=== PATIENT | female | born 2000 | race African-American/Black ===

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

== ENCOUNTER 2018-02-17 08:36 | Outpatient (CLI) | payer MEDICAID ==
[2018-02-17 09:49] LABS: APPEARANCE,URINE SLIGHTLY-CLOUDY; BILIRUBIN,URINE NEGATIVE (NEGATIVE); COLOR,URINE YELLOW; GLUCOSE, URINE NEGATIVE (NEGATIVE); KETONES,URINE NEGATIVE (NEGATIVE); LEUKOCYTE ESTERASE,URINE LARGE (NEGATIVE); NITRITE,URINE NEGATIVE (NEGATIVE); PROTEIN,URINE NEGATIVE (NEGATIVE); UROBILINOGEN,URINE NEGATIVE mg/dL (<2.0)
[2018-02-17 09:57] LABS: URINE AMPHETAMINES SCREEN NEGATIVE; URINE BARBITURATES SCREEN NEGATIVE; URINE BENZODIAZEPINES SCREEN NEGATIVE; URINE COCAINE SCREEN NEGATIVE; URINE MARIJUANA (THC) SCREEN NEGATIVE; URINE METHADONE SCREEN NEGATIVE; URINE PHENCYCLIDINE SCREEN NEGATIVE
== END 2018-02-17 10:25 | disposition home or self-care (01) ==
LOC: LC 08:36
PROVIDERS: ATTEND Obstetrics & Gynecology
PROC: 4A1HXCZ Monitoring of Products of Conception, Cardiac Rate, External Approach (ICD-10-PCS; principal; 2018-02-17)
DX: O36.8130 Decreased fetal movements, third trimester, not applicable or unspecified (principal); Z3A.29 29 weeks gestation of pregnancy
CPT/HCPCS: 80307; 81001; 87086

== ENCOUNTER → 2018-03-21 | Outpatient (CLI) | payer MEDICAID ==
--- NOTE | 2018-03-22 10:25 | XCELERA REPORT ---
[address] [address] Lower Extremity Venous Evaluation Name: SIENNA MONTELONGO Age: 17 yrs Gender: Female : 2000 Patient Status: Outpatient Patient Location: Study Date: 03/21/2018 04:55 PM Procedure: The veins were evaluated for patency, spontaneous and phasic flow from the Common Femoral down to the infrageniculate vessles, on the right. Reason For Study: RLE PAIN Ordering Physician: TEDDY ALDANA Performed By: Kiana Baez Right Sided Venous Evaluation Normal vessel filling wall to wall, compression and augmentation as well as Colour flow down to the infrageniculate veins. Interpretation Summary Normal compression, patency, spontaneous and phasic flow of the right lower extremity veins. : TEDDY ALDANA > Jose Rafael Garcia
== END ==
LOC: SP 15:57
PROVIDERS: ATTEND Student in an Organized Health Care Education/Training Program
DX: M79.604 Pain in right leg (principal); R22.2 Localized swelling, mass and lump, trunk
CPT/HCPCS: 93971

== ENCOUNTER 2018-04-29 15:53 | Outpatient (CLI) | payer MEDICAID ==
[2018-04-29 16:27] LABS: APPEARANCE,URINE SLIGHTLY-CLOUDY; BILIRUBIN,URINE NEGATIVE (NEGATIVE); COLOR,URINE YELLOW; GLUCOSE, URINE NEGATIVE (NEGATIVE); KETONES,URINE NEGATIVE (NEGATIVE); LEUKOCYTE ESTERASE,URINE LARGE (NEGATIVE); NITRITE,URINE NEGATIVE (NEGATIVE); PROTEIN,URINE NEGATIVE (NEGATIVE); URINE SPECIFIC GRAVITY 1.004; UROBILINOGEN,URINE NEGATIVE mg/dL (<2.0)
[2018-04-29 16:45] LABS: URINE AMPHETAMINES SCREEN NEGATIVE; URINE BARBITURATES SCREEN NEGATIVE; URINE BENZODIAZEPINES SCREEN NEGATIVE; URINE COCAINE SCREEN NEGATIVE; URINE MARIJUANA (THC) SCREEN NEGATIVE; URINE METHADONE SCREEN NEGATIVE; URINE PHENCYCLIDINE SCREEN NEGATIVE
[2018-04-29 17:08] LABS: BACTERIA (WET MOUNT) 4+ BACTERIA SEEN; EPITHELIALS (WET MOUNT) 4+ EPITHELIALS SEEN; T.VAGINALIS (WET MOUNT) NO TRICHOMONAS SEEN; WBCS (WET MOUNT) 1+ WBCS SEEN; YEAST (WET MOUNT) BUDDING YEAST SEEN
--- NOTE | 2018-04-29 19:06 | RADIOLOGY REPORT (SQ) ---
EXAM DESCRIPTION: U/S OB LIMITED COMPLETED DATE/TIME: 04/29/2018 6:48 pm REASON FOR STUDY: IUP 39.4, AGA for suspected ROM, est wt 39 weeks 5 days gestation. Estimat ed date of delivery 05/01/2018 COMPARISON: None. TECHNIQUE: Limited transabdominal grayscale ultrasound for evaluation of specific requested obstetri karina parameters. LIMITATIONS: None. FINDINGS: CERVICAL LENGTH: 2.4 cm. Closed. AGA: 11.5 cm. Cm. FHR: 160 beats per minute. PRESENTATION: Cephalic. OTHER: Estimated body weight 2707 +/- 401 g. gestational age by ultrasound: 37 weeks 1 day. IMPRESSION: LIMITED OBSTETRICAL ULTRASOUND WITH MEASURED PARAMETERS DELINEATED ABOVE. Trimester of : Third trimester - 28 weeks to delivery. TECHNICAL DOCUMENTATION: JOB ID: [id number] [employer]- All Rights Reserved Reading location - IP/workstation name: [email or web address]
== END 2018-04-29 19:02 | disposition home or self-care (01) ==
LOC: LC 15:53
PROVIDERS: ATTEND Obstetrics & Gynecology
PROC: 4A1HXCZ Monitoring of Products of Conception, Cardiac Rate, External Approach (ICD-10-PCS; principal; 2018-04-29)
DX: O47.1 False labor at or after 37 completed weeks of gestation (principal); Z3A.39 39 weeks gestation of pregnancy
CPT/HCPCS: 59025; 87210; 81005; 80307; 84112; 76815; Q0114

== ENCOUNTER 2018-05-05 16:25 | Outpatient (CLI) | payer MEDICAID ==
--- NOTE | 2018-05-05 17:13 | Non Stress Test Report ---
Non Stress Test Datetime Report Generated by CPN: 05/05/2018 17:12 DEMOGRAPHIC Test Number: 1 EGA NST: 40.4 EGA NST: 39.5 INDICATION Indication for Study: Ordered by Provider Indication for Study: Ordered by Provider MONITORING Monitor Explained: Monitor Explained; Test Explained; Patient Verbalized Understanding Monitor Explained: Monitor Explained; Test Explained; Patient Verbalized Understanding Time on Monitor: 05/05/2018 16:34 Time on Monitor: 04/29/2018 16:18 Time off Monitor: 05/05/2018 17:01 Time off Monitor: 04/29/2018 17:37 NST Duration: 27 NST Duration: 79 NST INTERVENTIONS NST Interventions: PO Hydration NST Interventions: PO Hydration Physician Notified NST: Robles Thomas, CNM Physician Notified NST: Mao BABY A: [id number] BABY A Movement : Present Movement : Present Contraction Frequency : 0 Contraction Frequency : irregular FHR Baseline : 135 FHR Baseline : 130 Accelerations : 15X15 Accelerations : 15X15 Decelerations : None Decelerations : None Variability : Moderate 6-25bpm Variability : Moderate 6-25bpm NST Review: Meets Criteria for Reactive NST NST Review: Meets Criteria for Reactive NST NST Review and Verified By : Carmine Aguilar RN NST Review and Verified By : TAYE Tobar NST Results: Reactive NST Results: Reactive NST REPORT Report Trigger: Send Report
== END 2018-05-05 17:07 | disposition home or self-care (01) ==
LOC: LC 16:25
PROVIDERS: ATTEND Obstetrics & Gynecology Gynecology
PROC: 4A1HXCZ Monitoring of Products of Conception, Cardiac Rate, External Approach (ICD-10-PCS; principal; 2018-05-05)
DX: O48.0 Post-term pregnancy (principal); Z3A.40 40 weeks gestation of pregnancy
CPT/HCPCS: 59025

== ENCOUNTER 2018-05-07 17:08 | Inpatient (IN) | payer MEDICAID ==
[2018-05-07] MEDS ORDERED: RINGERS SOLUTION,LACTATED 1,000 ML IV PRN ×2 (17:13→19:07)
[2018-05-07] MEDS ORDERED: RINGERS SOLUTION,LACTATED 300 ML IV ONE (17:13)
[2018-05-07] MEDS ORDERED: DINOPROSTONE 10 MG VAGINAL INSERT.SR PV PRN (17:13)
[2018-05-07 17:42] LABS: ABSOLUTE EOSINOPHILS # (AUTO) 0.1 10^3/uL (0.0-0.6); ABSOLUTE LYMPHOCYTES (AUTO) 1.1 10^3/uL (0.5-4.7); ABSOLUTE MONOCYTES (AUTO) 0.7 10^3/uL (0.1-1.4); BASOPHILS % (AUTO) 0.3 % (0-2); EOSINOPHILS % (AUTO) 1.2 % (0-6); HEMATOCRIT 35.5 % (36.0-47.0); HEMOGLOBIN 11.8 g/dL (12.0-15.5); MEAN CORPUSCULAR HEMOGLOBIN 25.5 pg (27.0-33.4); MEAN CORPUSCULAR HGB CONC 33.2 g/dL (32.0-36.0); MEAN CORPUSCULAR VOLUME 77 fl (80-97); MONOCYTES % (AUTO) 11.9 % (3-13); PLATELET COUNT 124 10^3/uL (150-450); RED BLOOD COUNT 4.61 10^6/uL (3.72-5.28); RED CELL DISTRIBUTION WIDTH 15.2 % (11.5-14.0); SEGMENTED NEUTROPHILS % (AUTO) 67.6 % (42-78); TOTAL CELLS COUNTED % (AUTO) 100 %
[2018-05-07 17:49] LABS: APPEARANCE,URINE SLIGHTLY-CLOUDY; BILIRUBIN,URINE NEGATIVE (NEGATIVE); COLOR,URINE STRAW; GLUCOSE, URINE NEGATIVE (NEGATIVE); KETONES,URINE NEGATIVE (NEGATIVE); LEUKOCYTE ESTERASE,URINE LARGE (NEGATIVE); NITRITE,URINE NEGATIVE (NEGATIVE); PROTEIN,URINE NEGATIVE (NEGATIVE); URINE SPECIFIC GRAVITY 1.003; UROBILINOGEN,URINE NEGATIVE mg/dL (<2.0)
[2018-05-07] MEDS ORDERED: DINOPROSTONE 10 MG VAGINAL INSERT.SR ONE (18:04)
[2018-05-07 18:20] LABS: URINE AMPHETAMINES SCREEN NEGATIVE; URINE BARBITURATES SCREEN NEGATIVE; URINE BENZODIAZEPINES SCREEN NEGATIVE; URINE COCAINE SCREEN NEGATIVE; URINE MARIJUANA (THC) SCREEN NEGATIVE; URINE METHADONE SCREEN NEGATIVE; URINE PHENCYCLIDINE SCREEN NEGATIVE
[2018-05-07] MEDS ORDERED: OXYTOCIN/NORMAL SALINE 20 UNIT/1,000 ML RTUINJ IV PRN (19:07)
[2018-05-07] MEDS ORDERED: OXYTOCIN/NORMAL SALINE 0 UNIT/0 ML RTUINJ ONE (19:15)
[2018-05-07 22:10] LABS: CHLAM PCR NOT DETECTED (NOT DETECT); GON PCR NOT DETECTED (NOT DETECT)
[2018-05-07] MEDS ORDERED: BUPIVACAINE HCL 0.5 % INJ/PF 30 ML SDV ONE (23:17)
[2018-05-07] MEDS ORDERED: EPHEDRINE SULFATE INJ 50 MG/1 ML AMPULE ONE (23:17)
[2018-05-07] MEDS ORDERED: FENTANYL/BUPIVACAINE/NS/PF 200 MCG/100 ML RTUINJ EPI ONE (23:18)
[2018-05-08] MEDS ORDERED: OXYTOCIN/NORMAL SALINE 20 UNIT/1,000 ML RTUINJ ONE (00:06)
[2018-05-08] MEDS ORDERED: MISOPROSTOL 0.2 MG TABLET ONE (00:06)
[2018-05-08] MEDS ORDERED: LIDOCAINE 1% INJ-PF (10 MG/ML) 30 ML SDV ONE (00:06)
[2018-05-08] MEDS ORDERED: ONDANSETRON HCL INJ/PF 4 MG/2 ML SDV IV ONE (00:43)
[2018-05-08] MEDS ORDERED: ONDANSETRON HCL INJ/PF 4 MG/2 ML SDV ONE (00:45)
--- NOTE | 2018-05-08 03:42 | Admission Physical ---
Datetime Report Generated by CPN: 05/08/2018 03:41 CURRENT ADMISSION Chief Complaint: Scheduled Induction of Labor Indication for Induction: Post Dates Admit Impression : Term, Intrauterine ; Induction of Labor Admit Plan: Admit to Unit; Initiate Labor Induction Protocol Admit Plan- Other: was originally scheduled for cervical ripening however on arrival cervical exam revealed a ripened cervix so Pitocin initiated. ALLERGIES Medication Allergies: No Medication Allergies: No Known Allergies (05/07/2018) Latex: No Latex Allergies Food Allergies: None Environmental Allergies: None OBSTETRICAL HISTORY EDC: 05/01/2018 00:00 : 1 Para: 0 Term: 0 : 0 SAB: 0 IAB: 0 Ectopic: 0 Livin Cesareans: 0 VBACs: 0 Multiple Births: 0 Gestational Diabetes: No Rh Sensitization: No Incompetent Cervix: No GIUSEPPE: No Infertility: No ART Treatment: No Uterine Anomaly: No IUGR: No Hx Previous C/S: No Macrosomia: No Hx Loss/Stillborn: No PIH: No Hx : No Placenta Previa/Abruption: No Depression/PP Depression: No PTL/PROM: No Post Hemorrhage: No Current Procedures: Ultrasound Obstetrical History Comments: G1 current - late to [facility] SEE RECORDS Alcohol: No Marijuana : No Cocaine: No Other Illicit Drugs: No Cigarettes: Never Smoker. [id number] MEDICAL HISTORY Diabetes: No Blood Transfusion: No Pulmonary Disease (Asthma, TB): No Breast Disease: No Hypertension: No [employer] Super[employer] Surgery: No Heart Disease: No Hosp/Surgery: No Autoimmune Disorder: No Anesthetic Complications: No Kidney Disease: No Abnormal Pap Smear: No Neuro/Epilepsy: No Psychiatric Disorders: No Other Medical Diseases: No Hepatitis/Liver Disease: No Significant Family History: No Varicosities/Phlebitis: No Trauma/Violence : No Thyroid Dysfunction: No INFECTIOUS HISTORY Gonorrhea: No Genital Herpes: No Chlamydia: Yes Tuberculosis: No Syphilis: No Hepatitis: No HIV/AIDS Exposure: No Rash or Viral Illness: No HPV: No Infectious History Comments: Chlamydia 2018 PHYSICAL EXAM General: Normal HEENT: Normal Neurologic: Normal Thyroid: Normal Heart: Normal Lungs: Normal Breast: Normal Back: Normal Abdomen: Normal Genitourinary Exam: Normal Extremities: Normal DTRs: Normal Pelvic Type: Adequate Vital Signs: Reviewed; Within Normal Limits VAGINAL EXAM Dilatation: 3 Effacement: 80 Station: -1 MEMBRANES Pooling: Negative Membranes: Intact FETUS A EGA: 40.6 Monitoring: External US FHR- Baseline: 130 Variability: Moderate 6-25bpm Accelerations: 15X15 Decelerations: None FHR Category: Category I Estimated Weight (gm): 4000 Presentation: Vertex PLANS FOR LABOR AND DELIVERY Labor and Delivery: None Pain Management: Epidural Feeding Preference: Breast Benefit of Breast Feed Discussed: Yes Circumcision: Yes INFORMED CONSENT Signature: with User ID: [email or web address]
[2018-05-08] MEDS ORDERED: METHYLERGONOVINE MALEATE INJ/PF 0.2 MG/1 ML AMPULE ONE (03:45)
[2018-05-08] MEDS ORDERED: BENZOCAINE/MENTHOL AEROSOL SPRAY 56 ML TOP PRN (03:49)
[2018-05-08] MEDS ORDERED: ACETAMINOPHEN WITH CODEINE #3 TABLET PO PRN ×2 (03:49)
[2018-05-08] MEDS ORDERED: PROMETHAZINE HCL 25 MG SUPP.RECT PR PRN (03:49)
[2018-05-08] MEDS ORDERED: PSEUDOEPHEDRINE HCL 30 MG TABLET PO PRN (03:49)
[2018-05-08] MEDS ORDERED: PROMETHAZINE HCL INJ 25 MG/1 ML VIAL IV PRN (03:49)
[2018-05-08] MEDS ORDERED: PROMETHAZINE HCL 25 MG TABLET PO PRN (03:49)
[2018-05-08] MEDS ORDERED: MEASLES,MUMPS&RUBELLA VACC/PF 0.5 ML VIAL SUBCUT PRN (03:49)
[2018-05-08] MEDS ORDERED: ACETAMINOPHEN 650 MG SUPP.RECT PR PRN (03:49)
[2018-05-08] MEDS ORDERED: ZOLPIDEM TARTRATE 5 MG TABLET PO PRN (03:49)
[2018-05-08] MEDS ORDERED: NA PHOS,M-B/NA PHOS,DI-BA (ADULT) 133 ML ENEMA PR PRN (03:49)
[2018-05-08] MEDS ORDERED: DIPHENHYDRAMINE HCL 25 MG CAPSULE PO PRN (03:49)
[2018-05-08] MEDS ORDERED: MAGNESIUM HYDROXIDE SUSP 30 ML UDCUP PO PRN (03:49)
[2018-05-08] MEDS ORDERED: DIPH/PERTUSS(ACELL)/TETANUS VAC/PF 0.5 ML SYR (>=10YO) IM PRN (03:49)
[2018-05-08] MEDS ORDERED: OXYTOCIN/NORMAL SALINE 20 UNIT/1,000 ML RTUINJ IV PRN (03:49)
[2018-05-08] MEDS ORDERED: GLYCERIN/WITCH HAZEL LEAF 1 EACH MED..PAD TP PRN (03:49)
[2018-05-08] MEDS ORDERED: DIBUCAINE 1% OINTMENT 28 GM TP PRN (03:49)
[2018-05-08] MEDS ORDERED: MISOPROSTOL 0.2 MG TABLET PR PRN (03:49)
[2018-05-08] MEDS ORDERED: METHYLERGONOVINE MALEATE INJ/PF 0.2 MG/1 ML AMPULE IM PRN (03:49)
[2018-05-08] MEDS ORDERED: IBUPROFEN 800 MG TABLET ONE (04:39)
[2018-05-08] MEDS ORDERED: ACETAMINOPHEN 325 MG TABLET ONE (04:39)
[2018-05-08] MEDS ORDERED: AMPICILLIN SOD/SULBACTAM 3 GM VIAL ONE (05:19)
[2018-05-08] MEDS ORDERED: AMPICILLIN SOD/SULBACTAM 3 GM VIAL IV SCH (06:00)
[2018-05-08] MEDS: AMPICILLIN SODIUM/SULBACTAM NA 3 GM in NORMAL SALINE 100 ML IV SCH ×3 (06:23→22:01)
[2018-05-08] MEDS: IBUPROFEN 800 MG TABLET PO SCH ×3 (06:24→22:01)
--- NOTE | 2018-05-08 07:53 | Warning Signs in Babies ---
VOD Warning Signs Datetime Report Generated by [facility]: 05/08/2018 05:58 VOD#608 -Warning Signs in Babies: Needs to be viewed. (12/29/2017 13:44:Yuliana Hatch RN)
--- NOTE | 2018-05-08 09:34 | PDOC PROGRESS REPORT ---
Subjective-OB Progress Note for:: 05/08/18 Subjective: Pt doing well, no concerns. She reports light bleeding, reg diet, and no difficulty voiding. Physical Exam (OB) Vital Signs: Temp Pulse Resp BP Pulse Ox 98.0 F 68 18 130/86 H 98 05/08/18 09:00 05/08/18 09:00 05/08/18 09:00 05/08/18 09:00 05/08/18 09:00 Intake & Output 05/07/18 05/08/18 05/09/18 06:59 06:59 06:59 Intake Total 1000 2000 Balance 1000 1999 Weight 68.7 kg - Lochia Lochia Amount: Moderate 25-50 ml Lochia Color: Rubra/Red - Abdomen Description: Soft Hernia Present: No Fundal Description: Firm, Midline Fundal Height: u/u - u/2 Objective-Diagnostic Laboratory: 05/07/18 17:26 05/07/18 05/07/18 05/07/18 15:15 17:26 17:26 WBC 6.0 RBC 4.61 Hgb 11.8 L Hct 35.5 L MCV 77 L MCH 25.5 L MCHC 33.2 RDW 15.2 H Plt Count 124 L Seg Neutrophils % 67.6 Lymphocytes % 19.0 Monocytes % 11.9 Eosinophils % 1.2 Basophils % 0.3 Absolute Neutrophils 4.0 Absolute Lymphocytes 1.1 Absolute Monocytes 0.7 Absolute Eosinophils 0.1 Absolute Basophils 0.0 Urine Color STRAW Urine Appearance SLIGHTLY-CLOUDY Urine pH 6.0 Ur Specific Cylinder 1.003 Urine Protein NEGATIVE Urine Glucose (UA) NEGATIVE Urine Ketones NEGATIVE Urine Blood NEGATIVE Urine Nitrite NEGATIVE Ur Leukocyte Esterase LARGE H Blood Type O POSITIVE Antibody Screen NEGATIVE Assessment and Plan(PN) - Assessment and Plan (1) Vaginal delivery Is this a current diagnosis for this admission?: Yes - Time Spent with Patient Time with patient: Less than 15 minutes Medications reviewed and adjusted accordingly: Yes - Disposition Anticipated Discharge: Home Within: within 24 hours
[2018-05-08] MEDS: FERROUS SULFATE 325 MG TABLET PO SCH ×2 (10:33→17:45)
[2018-05-08] MEDS: SENNOSIDES/DOCUSATE 8.6-50 MG 1 EACH TABLET PO SCH (10:33)
[2018-05-08] MEDS: PRENATAL VITAMIN W DHA CAPSULE PO SCH (10:33)
[2018-05-08] MEDS: FAMOTIDINE 20 MG TABLET PO SCH ×2 (10:33→22:01)
[2018-05-08] MEDS: DOCUSATE SODIUM 100 MG CAPSULE PO SCH ×2 (10:33→17:45)
[2018-05-09] MEDS: IBUPROFEN 800 MG TABLET PO SCH ×3 (06:04→21:25)
[2018-05-09] MEDS: AMPICILLIN SODIUM/SULBACTAM NA 3 GM in NORMAL SALINE 100 ML IV SCH (06:05)
[2018-05-09 08:05] LABS: HEMATOCRIT 26.3 % (36.0-47.0); MEAN CORPUSCULAR VOLUME 77 fl (80-97); PLATELET COUNT 103 10^3/uL (150-450); RED BLOOD COUNT 3.44 10^6/uL (3.72-5.28); RED CELL DISTRIBUTION WIDTH 15.2 % (11.5-14.0)
[2018-05-09] MEDS: SENNOSIDES/DOCUSATE 8.6-50 MG 1 EACH TABLET PO SCH (09:25)
[2018-05-09] MEDS: PRENATAL VITAMIN W DHA CAPSULE PO SCH (09:25)
[2018-05-09] MEDS: FERROUS SULFATE 325 MG TABLET PO SCH ×2 (09:25→18:11)
[2018-05-09] MEDS: FAMOTIDINE 20 MG TABLET PO SCH ×2 (09:25→21:25)
[2018-05-09] MEDS: DOCUSATE SODIUM 100 MG CAPSULE PO SCH ×2 (09:25→18:11)
--- NOTE | 2018-05-09 16:50 | PDOC PROGRESS REPORT ---
Subjective-OB Progress Note for:: 05/09/18 Subjective: reports bleeding slowing, pain managed with current meds, denies needs Physical Exam (OB) Vital Signs: Temp Pulse Resp BP Pulse Ox 98.4 F 68 16 117/67 97 05/09/18 08:00 05/09/18 08:00 05/09/18 08:00 05/09/18 08:00 05/09/18 08:00 Intake & Output 05/08/18 05/09/18 05/10/18 06:59 06:59 06:59 Intake Total 1000 2200 Balance 1000 2200 Weight 68.7 kg - Abdomen Description: Soft, Round Hernia Present: No Fundal Description: Firm, Midline Fundal Height: u/u - u/2 - Abdominal Tenderness: Nontender - Extremities Lower extremities: Stacy's sign - neg Calf: Normal, Nontender Objective-Diagnostic Laboratory: 05/09/18 06:54 05/09/18 06:54 WBC 11.0 H RBC 3.44 L Hgb 9.0 L D Hct 26.3 L MCV 77 L MCH 26.0 L MCHC 34.0 RDW 15.2 H Plt Count 103 L Assessment and Plan(PN) - Assessment and Plan (1) Vaginal delivery Is this a current diagnosis for this admission?: Yes - Time Spent with Patient Time with patient: Less than 15 minutes Medications reviewed and adjusted accordingly: Yes - Disposition Anticipated Discharge: Home Within: within 24 hours
[2018-05-10] MEDS: IBUPROFEN 800 MG TABLET PO SCH ×2 (06:16→13:21)
[2018-05-10] MEDS: FAMOTIDINE 20 MG TABLET PO SCH (10:32)
[2018-05-10] MEDS: FERROUS SULFATE 325 MG TABLET PO SCH (10:32)
[2018-05-10] MEDS: PRENATAL VITAMIN W DHA CAPSULE PO SCH (10:32)
[2018-05-10] MEDS: SENNOSIDES/DOCUSATE 8.6-50 MG 1 EACH TABLET PO SCH (10:32)
[2018-05-10] MEDS: DOCUSATE SODIUM 100 MG CAPSULE PO SCH (10:32)
--- NOTE | 2018-05-10 10:51 | PDOC DISCHARGE SUMMARY ---
Final Diagnosis Discharge Date: 05/10/18 - Final Diagnosis (1) Vaginal delivery Is this a current diagnosis for this admission?: Yes Discharge Data - Discharge Medication Prescriptions: Ibuprofen [Motrin 800 mg Tablet] 800 mg PO Q8 #60 tablet Home Medications: Vit/Iron Fum/Folic AC [ Tablet] 1 tab PO DAILY 12/29/17 Ferrous Sulfate [Feosol 325 mg Tablet] 325 mg PO BID tablet 05/10/18 Ibuprofen [Motrin 800 mg Tablet] 800 mg PO Q8 #60 tablet 05/10/18 Procedures: NST Intrapartum Procedure(s): Spontaneous Vaginal Delivery - Diagnosis Test Laboratory: Temp Pulse Resp BP Pulse Ox 97.6 F 86 16 103/62 99 05/10/18 07:27 05/10/18 07:27 05/10/18 07:27 05/10/18 07:27 05/10/18 07:27 05/07/18 05/07/18 05/09/18 15:15 17:26 06:54 RBC 4.61 3.44 L Hgb 11.8 L 9.0 L D Hct 35.5 L 26.3 L Urine Opiates Screen NEGATIVE - Discharge information/Instructions Discharge Activity: Balance Activity w/Rest, Pelvic Rest Discharge Diet: Regular Disposition: HOME, SELF-CARE Follow up with: [facility] in: 4, Weeks
[2018-05-10 12:02] VITALS: BP 122/71
== END 2018-05-10 14:22 | disposition home or self-care (01) | DRG 774 ==
LOC: LR 17:08 → 2S 05-08 06:16
PROVIDERS: ADMIT Obstetrics & Gynecology; ATTEND Obstetrics & Gynecology
PROC: 4A1HXCZ Monitoring of Products of Conception, Cardiac Rate, External Approach (ICD-10-PCS; 2018-05-07)
PROC: 10E0XZZ Delivery of Products of Conception, External Approach (ICD-10-PCS; principal; 2018-05-08)
PROC: 3E033VJ Introduction of Other Hormone into Peripheral Vein, Percutaneous Approach (ICD-10-PCS; 2018-05-08)
PROC: 10907ZC Drainage of Amniotic Fluid, Therapeutic from Products of Conception, Via Natural or Artificial Opening (ICD-10-PCS; 2018-05-08)
DX: O48.0 Post-term pregnancy (principal); O75.2 Pyrexia during labor, not elsewhere classified; O72.1 Other immediate postpartum hemorrhage; O77.0 Labor and delivery complicated by meconium in amniotic fluid; Z3A.41 41 weeks gestation of pregnancy; Z37.0 Single live birth
CPT/HCPCS: 36415; 80307; 81005; 85025; 85027; 86592; 86850; 86900; 86901; 87491; 87591; 94760; J0295; J2210; J2405; J2590; J3490

== ENCOUNTER → 2018-08-05 | Outpatient (CLI) | payer MEDICAID ==
--- NOTE | 2018-08-05 14:08 | RADIOLOGY REPORT (SQ) ---
EXAM DESCRIPTION: MRI ABDOMEN WITHOUT COMPLETED DATE/TIME: 08/05/2018 1:43 pm REASON FOR STUDY: SOFT TISSUE ABDOMINAL MASS (R19.07) R19.07 GENERALIZED INTRA-ABD AND PELVIC SWELL ING, MASS AND L COMPARISON: None. TECHNIQUE: Noncontrast imaging with attention to the upper abdomen and anterior abdominal wall, incl uding in and out of phase T1 sequences. LIMITATIONS: None. FINDINGS: No all subxiphoid/upper anterior abdominal wall hernia is identified. No diastases of the rectus muscle sheath. No anterior abdominal wall masses. ADRENAL GLANDS: Normal configuration. No mass. GALLBLADDER: No masses. No stones. No gallbladder wall thickening or pericholecystic fluid. LIVER AND BILIARY STRUCTURES: Normal. No ductal dilatation. SPLEEN: Normal. PANCREAS: Normal. Peripancreatic tissues normal. KIDNEYS: Normal OTHER: No other significant finding. IMPRESSION: NORMAL MRI OF THE ABDOMEN WITHOUT CONTRAST. NO VENTRAL HERNIA. TECHNICAL DOCUMENTATION: JOB ID: [id number] [employer]- All Rights Reserved Reading location - IP/workstation name: [facility]
== END ==
LOC: RAD 12:55
PROVIDERS: ATTEND Obstetrics & Gynecology
DX: R19.07 Generalized intra-abdominal and pelvic swelling, mass and lump (principal)
CPT/HCPCS: 74181

== ENCOUNTER 2019-07-27 01:27 | Emergency (ER) | payer MEDICAID ==
[2019-07-27] MEDS ORDERED: KETOROLAC TROMETHAMINE INJ/PF 30 MG/1 ML SDV IV ONE (02:50)
--- NOTE | 2019-07-27 03:00 | ER Document Report ---
ED GI/ - General Chief Complaint: Abdominal Pain Stated Complaint: LEFT SIDED ABDOMINAL PAIN Time Seen by Provider: 07/27/19 02:43 Primary Care Provider: SHANNAN MESSINA MD [Primary Care Provider] - Follow up as needed Notes: Patient is a 18-year-old female that comes to the emergency department for chief complaint of left-sided abdominal pain. She states it started getting sharp tonight, she states that she tried getting a hot shower and it did not seem to help, the only thing that helped was curling up in a ball. She states now the pain is intermittent. She did get nauseated but she denies vomiting. She denies dysuria, vaginal bleeding or discharge. She denies flank pain. She states that she has had this pain previously but never has been told what it is. She does admit that she has difficulty moving her bowels and moves them very infrequently. She denies , surgeries, or any daily medications. TRAVEL OUTSIDE OF THE [place] IN LAST 30 DAYS: No - Related Data Allergies/Adverse Reactions: No Known Allergies Allergy (Verified 05/07/18 17:45) Past Medical History - General Information source: Patient - Social History Smoking Status: Never Smoker Chew tobacco use (# tins/day): No Frequency of alcohol use: None Drug Abuse: None Lives with: Family Family History: Reviewed & Not Pertinent Patient has suicidal ideation: No Patient has homicidal ideation: No - Medical History Medical History: Negative Surgical Hx: Negative - Immunizations Immunizations up to date: Yes Hx Diphtheria, Pertussis, Tetanus Vaccination: Yes Review of Systems - Review of Systems Constitutional: No symptoms reported EENT: No symptoms reported Cardiovascular: No symptoms reported Respiratory: No symptoms reported Gastrointestinal: See HPI Genitourinary: See HPI Female Genitourinary: No symptoms reported Musculoskeletal: No symptoms reported Skin: No symptoms reported Hematologic/Lymphatic: No symptoms reported Neurological/Psychological: No symptoms reported Physical Exam - Vital signs Vitals: Temp Pulse Resp BP Pulse Ox 99.0 F 95 16 134/76 H 100 07/27/19 01:33 07/27/19 01:33 07/27/19 01:33 07/27/19 01:33 07/27/19 01:33 - Notes Notes: GENERAL: Alert, interacts well. No acute distress. HEAD: Normocephalic, atraumatic. EYES: Pupils equal, round, and reactive to light. Extraocular movements intact. ENT: Oral mucosa moist, tongue midline. Oropharynx unremarkable. NECK: Full range of motion. Supple. Trachea midline. LUNGS: Clear to auscultation bilaterally, no wheezes, rales, or rhonchi. No respiratory distress. HEART: Regular rate and rhythm. No murmur ABDOMEN: There is mild tenderness in the mid to left mid abdomen, there is no tenderness noted in the pelvic area or in the epigastric areas. No guarding or rigidity. Bowel sounds present. EXTREMITIES: Moves all 4 extremities spontaneously. No edema, normal radial and dorsalis pedis pulses bilaterally. No cyanosis. BACK: No CVA tenderness. No cervical, thoracic, lumbar midline tenderness. No saddle anesthesia, normal distal neurovascular exam. Moves all extremities in full range of motion. NEUROLOGICAL: Alert and oriented x3. Normal speech. Cranial nerves II through XII grossly intact. PSYCH: Normal affect, normal mood. SKIN: Warm, dry, normal turgor. No rashes or lesions noted. Course - Re-evaluation Re-evalutation: CBC, chemistry unremarkable. Urinalysis indicates infection. hCG is negative. Patient actually has no pelvic tenderness on exam, no epigastric tenderness either. She also reports difficulty with bowel movements and history of constipation. Unremarkable vital signs. Patient with no symptoms after Toradol, sleeping and easily aroused on reevaluation. Very low suspicion of acute abdomen. Discussed options with patient. Decision was made to proceed with treatment for UTI and suspected constipation, discussed expectations, follow-up, and return precautions at length with patient and significant other. They state appreciation and agreement. - Vital Signs Vital signs: Temp Pulse Resp BP Pulse Ox 98.7 F 82 20 103/54 L 99 07/27/19 05:25 07/27/19 05:25 07/27/19 05:25 07/27/19 05:25 07/27/19 05:25 - Laboratory Result Diagrams: 07/27/19 03:15 07/27/19 03:15 Laboratory results interpreted by me: 07/27/19 07/27/19 07/27/19 03:15 03:15 03:29 MCH 26.5 L RDW 15.6 H Band Neutrophils % 1 L Chloride 108 H Urine Protein 30 H Urine Blood MODERATE H Urine Urobilinogen 2.0 H Ur Leukocyte Esterase TRACE H Discharge - Discharge Clinical Impression: Nausea Abdominal pain Qualifiers: Abdominal location: generalized Qualified Code(s): R10.84 - Generalized abdominal pain Condition: Stable Disposition: HOME, SELF-CARE Additional Instructions: Based on your work-up and exam I suspect you have both a bladder infection and some constipation. I recommend you take both the antibiotic and the stool softener as prescribed, increase fiber in your diet, improve your hydration. Take Phenergan as needed for nausea, take ibuprofen or Tylenol and Tylenol (can be taken together) if needed for pain. Follow-up with primary care. Return if you worsen including vomiting, fever, severe worsening pain, or any other concerning or worsening symptoms. Prescriptions: Docusate Sodium [Colace 100 mg Capsule] 100 mg PO ASDIR PRN #30 capsule PRN Reason: Cephalexin Monohydrate [Keflex 500 mg Capsule] 500 mg PO BID 7 Days #14 capsule Promethazine HCl [Phenergan 25 mg Tablet] 25 mg PO Q6H PRN #15 tablet PRN Reason: Forms: Return to Work Referrals: SHANNAN MESSINA MD [Primary Care Provider] - Follow up as needed
[2019-07-27 03:41] LABS: HEMOGLOBIN 12.9 g/dL (12.0-15.5); MEAN CORPUSCULAR HEMOGLOBIN 26.5 pg (27.0-33.4); MEAN CORPUSCULAR HGB CONC 33.1 g/dL (32.0-36.0); MEAN CORPUSCULAR VOLUME 80 fl (80-97); PLATELET COUNT 157 10^3/uL (150-450); RED BLOOD COUNT 4.87 10^6/uL (3.72-5.28); RED CELL DISTRIBUTION WIDTH 15.6 % (11.5-14.0); WHITE BLOOD COUNT 5.3 10^3/uL (4.0-10.5)
[2019-07-27 03:56] LABS: ALBUMIN 4.1 g/dL (3.5-5.0); ALKALINE PHOSPHATASE 77 U/L (38-126); ANION GAP 7 (5-19); ASPARTATE AMINO TRANSFERASE 20 U/L (14-36); BILIRUBIN,DIRECT 0.1 mg/dL (0.0-0.4); BILIRUBIN,TOTAL 0.3 mg/dL (0.2-1.3); BLOOD UREA NITROGEN 10 mg/dL (7-20); CALCIUM 9.4 mg/dL (8.4-10.2); CARBON DIOXIDE 23 mmol/L (22-30); CHLORIDE 108 mmol/L (98-107); GLUCOSE 102 mg/dL (75-110); POTASSIUM 4.1 mmol/L (3.6-5.0); TOTAL PROTEIN 7.6 g/dL (6.3-8.2)
[2019-07-27 04:09] LABS: ABSOLUTE LYMPHOCYTES# (MANUAL) 1.5 10^3/uL (0.5-4.7); ABSOLUTE MONOCYTES # (MANUAL) 0.5 10^3/uL (0.1-1.4); ANISOCYTOSIS SLIGHT; BAND NEUTROPHILS % (MANUAL) 1 % (3-5); BASOPHILS % (MANUAL) 0 % (0-2); EOSINOPHILS % (MANUAL) 1 % (0-6); LYMPHOCYTES % (MANUAL) 29 % (13-45); MONOCYTES % (MANUAL) 10 % (3-13); SEGMENTED NEUTROPHILS % (MAN) 59 % (42-78); TOTAL CELLS COUNTED 100
[2019-07-27 04:10] LABS: PLATELET COMMENT ADEQUATE
[2019-07-27 04:12] LABS: APPEARANCE,URINE CLEAR; BILIRUBIN,URINE NEGATIVE (NEGATIVE); COLOR,URINE YELLOW; GLUCOSE, URINE NEGATIVE (NEGATIVE); KETONES,URINE NEGATIVE (NEGATIVE); LEUKOCYTE ESTERASE,URINE TRACE (NEGATIVE); NITRITE,URINE NEGATIVE (NEGATIVE); PROTEIN,URINE 30 mg/dL (NEGATIVE); URINE SPECIFIC GRAVITY 1.013
[2019-07-27] MEDS ORDERED: CEPHALEXIN 500 MG CAPSULE PO ONE (04:45)
[2019-07-27 05:26] VITALS: BP 103/54
== END 2019-07-27 05:26 | disposition home or self-care (01) ==
LOC: ER 01:27
DX: N39.0 Urinary tract infection, site not specified (principal); R10.84 Generalized abdominal pain; R11.0 Nausea; R19.8 Other specified symptoms and signs involving the digestive system and abdomen; R10.819 Abdominal tenderness, unspecified site
CPT/HCPCS: 36415; 87086; 83690; 85025; 81025; 87088; 80053; 81001; J1885; 87186; 96374; 99284

== ENCOUNTER 2020-02-04 13:02 | Emergency (ER) | payer MEDICAID ==
--- NOTE | 2020-02-04 13:38 | ER Document Report ---
ED General - General Chief Complaint: Chest Pain Stated Complaint: CHEST PAIN Primary Care Provider: SHANNAN MESSINA MD [NO LOCAL MD] - Follow up as needed Notes: 19-year-old female presents with chest pain. 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 She has sickle cell trait but not sickle cell disease. She does not have leg swelling does not smoke has no recent travel history of thrombosis TRAVEL OUTSIDE OF THE [place] IN LAST 30 DAYS: No - Related Data Allergies/Adverse Reactions: No Known Allergies Allergy (Verified 05/07/18 17:45) Past Medical History - Social History Smoking Status: Never Smoker Family History: Reviewed & Not Pertinent - Immunizations Immunizations up to date: Yes Hx Diphtheria, Pertussis, Tetanus Vaccination: Yes Review of Systems - Review of Systems Notes: REVIEW OF SYSTEMS GEN: Denies fever, chills, weight loss ENT: Denies sore throat, nasal discharge, ear pain EYES: Denies blurry vision, eye pain, discharge CV: This pain RESP: Shortness of breath GI: Denies abdominal pain, nausea, vomiting, diarrhea MSK: Denies joint pain/swelling, edema, SKIN: Denies rash, skin lesions LYMPH: Denies swollen glands/lymph nodes NEURO: Denies headache, focal weakness or numbness, dizziness PSYCH: Denies depression, suicidal or homicidal ideation PHYSICAL EXAMINATION General: No acute distress, well-nourished Head: Atraumatic, normocephalic ENT: Mouth normal, oropharynx moist, no exudates or tonsillar enlargement Eyes: Conjunctiva normal, pupils equal, lids normal Neck: No JVD, supple, no guarding CVS: Normal rate, regular rhythm, no murmurs Resp: No resp distress, equal and normal breath sounds bilaterally GI: Nondistended, soft, no tenderness to palpation, no rebound or guarding Ext: No deformities, no edema, normal range of motion in upper and lower ext Back: No CVA or midline TTP Skin: No rash, warm Lymphatic: No lymphadeopathy noted Neuro: Awake, alert. Face symmetric. GCS 15. Physical Exam - Vital signs Vitals: Temp Pulse Resp BP Pulse Ox 98.4 F 76 20 121/71 100 02/04/20 13:11 02/04/20 13:11 02/04/20 13:11 02/04/20 13:11 02/04/20 13:11 Course - Re-evaluation Re-evalutation: 02/04/20 13:37 Chronic recurrent chest pain and shortness of breath with reported tachycardia. Not tacky here normal EKG no risk factors for DVT sickle cell trait but not disease We will check for anemia check chest x-ray, and monitor. Do not think she needs a full ischemic work-up I do not think that she has PE. - Vital Signs Vital signs: Temp Pulse Resp BP Pulse Ox 98.4 F 66 18 117/70 100 02/04/20 15:42 02/04/20 15:42 02/04/20 15:42 02/04/20 15:42 02/04/20 15:42 - Laboratory Result Diagrams: 02/04/20 13:48 02/04/20 13:48 Laboratory results interpreted by me: 02/04/20 02/04/20 13:48 13:48 WBC 3.1 L [place] % (Auto) 14.0 H Absolute Neuts (auto) 1.3 L Glucose 69 L - Diagnostic Test Radiology reviewed: Pending, Image reviewed, Reports reviewed - EKG Interpretation by Me EKG shows normal: Sinus rhythm Rate: Normal Rhythm: NSR - No old, no ST or T wave changes Discharge - Discharge Clinical Impression: Chest pain, unspecified Qualifiers: Chest pain type: other chest pain Qualified Code(s): R07.89 - Other chest pain Condition: Good Disposition: HOME, SELF-CARE Instructions: Chest Wall Pain ([facility]) Referrals: SHANNAN MESSINA MD [NO LOCAL MD] - Follow up as needed
[2020-02-04 13:56] LABS: ABSOLUTE EOSINOPHILS # (AUTO) 0.1 10^3/uL (0.0-0.6); ABSOLUTE LYMPHOCYTES (AUTO) 1.2 10^3/uL (0.5-4.7); ABSOLUTE MONOCYTES (AUTO) 0.4 10^3/uL (0.1-1.4); ABSOLUTE NEUT (AUTO) 1.3 10^3/uL (1.7-8.2); BASOPHILS % (AUTO) 0.4 % (0-2); EOSINOPHILS % (AUTO) 2.5 % (0-6); HEMATOCRIT 38.4 % (36.0-47.0); HEMOGLOBIN 12.8 g/dL (12.0-15.5); LYMPHOCYTES % (AUTO) 39.8 % (13-45); MEAN CORPUSCULAR HEMOGLOBIN 27.1 pg (27.0-33.4); MEAN CORPUSCULAR HGB CONC 33.4 g/dL (32.0-36.0); MEAN CORPUSCULAR VOLUME 81 fl (80-97); PLATELET COUNT 164 10^3/uL (150-450); RED BLOOD COUNT 4.73 10^6/uL (3.72-5.28); RED CELL DISTRIBUTION WIDTH 13.9 % (11.5-14.0); SEGMENTED NEUTROPHILS % (AUTO) 43.3 % (42-78); TOTAL CELLS COUNTED % (AUTO) 100 %; WHITE BLOOD COUNT 3.1 10^3/uL (4.0-10.5)
[2020-02-04 14:20] LABS: ANION GAP 5 (5-19); BLOOD UREA NITROGEN 14 mg/dL (7-20); CALCIUM 9.2 mg/dL (8.4-10.2); CARBON DIOXIDE 27 mmol/L (22-30); CHLORIDE 106 mmol/L (98-107); POTASSIUM 4.2 mmol/L (3.6-5.0)
[2020-02-04 14:21] LABS: GLUCOSE 69 mg/dL (75-110)
--- NOTE | 2020-02-04 14:32 | RADIOLOGY REPORT (SQ) ---
EXAM DESCRIPTION: CHEST SINGLE VIEW IMAGES COMPLETED DATE/TIME: 02/04/2020 2:20 pm REASON FOR STUDY: Cp SOB COMPARISON: 07/14/2007. EXAM PARAMETERS: NUMBER OF VIEWS: One view. TECHNIQUE: Single frontal radiographic view of the chest acquired. RADIATION DOSE: NA LIMITATIONS: None. FINDINGS: LUNGS AND PLEURA: No opacities, masses or pneumothorax. No pleural effusion. MEDIASTINUM AND HILAR STRUCTURES: No masses. Contour normal. HEART AND VASCULAR STRUCTURES: Heart normal in size. Normal vasculature. BONES: No acute findings. HARDWARE: None in the chest. OTHER: No other significant finding. IMPRESSION: NO ACUTE RADIOGRAPHIC FINDING IN THE CHEST. TECHNICAL DOCUMENTATION: JOB ID: [id number] 2010 [employer]- All Rights Reserved Reading location - IP/workstation name: [email or web address]
[2020-02-04 15:44] VITALS: BP 117/70
--- NOTE | 2020-02-04 20:52 | EKG REPORT ---
SEVERITY:- NORMAL ECG - SINUS RHYTHM : Confirmed by: Carolyn Loyola MD 04-Feb-2020 20:51:42
== END 2020-02-04 15:42 | disposition home or self-care (01) ==
LOC: ER 13:02
DX: R07.9 Chest pain, unspecified (principal); R06.02 Shortness of breath; D57.3 Sickle-cell trait
CPT/HCPCS: 36415; 71045; 80048; 85025; 93005; 93010; 99285